=== PATIENT | male | born 1990 | race Hispanic/Latino ===

== ENCOUNTER 2018-05-30 02:05 | Emergency (ER) | payer OTHER | END 2018-05-30 02:42 | disposition home or self-care (01) | LOC: EDH 02:05 | DX: F41.9 Anxiety disorder, unspecified (principal) ==

== ENCOUNTER 2023-09-03 20:44 | Emergency (ER) | payer OTHER ==
[~2023-09-03] VITALS: Ht 165.1 cm; Wt 212.5 kg
[2023-09-03 21:15] LABS: SARS-CoV-2, RNA, NAAT NEGATIVE SARS CoV-2 (NEGATIVE)
[2023-09-03 21:16] LABS: INFLUENZA TYPE A Negative For Type A (NEGATIVE); INFLUENZA TYPE B Negative For Type B (NEGATIVE)
[2023-09-03 21:22] LABS: BASOPHILS # (AUTO) 0.01 K/uL (0.00-0.20); BASOPHILS % (AUTO) 0.4 % (0.0-5.0); HEMATOCRIT 42.6 % (42-54); IMMATURE GRANULOCYTE ABSOLUTE 0.01 K/uL (0-1); LYMPHOCYTES % (AUTO) 34.6 % (21.0-51.0); MEAN CORPUSCULAR HEMOGLOBIN 28.7 pg (27.0-33.0); MEAN CORPUSCULAR HGB CONC 32.9 g/dL (32.0-36.0); MEAN CORPUSCULAR VOLUME 87.3 fL (79-99); MONOCYTES # (AUTO) 0.2 K/uL (0.1-1.0); MONOCYTES % (AUTO) 6.8 % (3.0-13.0); NEUTROPHILS # (AUTO) 1.6 K/uL (1.8-7.7); NEUTROPHILS % (AUTO) 57.8 % (40.0-77.0); PLATELET COUNT (AUTO) 127 K/uL (130-400); RED BLOOD CELL COUNT(AUTO) 4.88 MIL/uL (4.50-6.20); RED CELL DISTRIBUTION WIDTH 13.2 % (11.0-15.5); WHITE BLOOD COUNT (AUTO) 2.8 K/uL (4.8-10.8)
[2023-09-03 21:41] LABS: CREATININE 0.9 mg/dL (0.5-1.5); POTASSIUM 3.7 mmol/L (3.5-5.1)
[2023-09-03 21:42] LABS: BAND NEUTROPHILS % (MANUAL) 16 % (0-2); LYMPHOCYTES % (MANUAL) 27 % (22-44); MAN.DIFF COMMENT-IMPRESSION MANUAL DIFFERENTIAL; MONOCYTES % (MANUAL) 8 % (2-9); REACTIVE LYMPHOCYTES 6 % (0-0); SEGMENTED NEUTROPHILS % 43 % (40-70); TOTAL CELLS COUNTED 100
[2023-09-03 21:45] LABS: PLATELET MORPHOLOGY COMMENT LARGE PLTS PRESENT
[2023-09-03 21:46] LABS: BILIRUBIN,TOTAL 0.6 mg/dL (0.2-1.0); TOTAL PROTEIN, SERUM 7.6 g/dL (6.0-8.3)
[2023-09-03] MEDS ORDERED: CEFTRIAXONE 1G VIAL IVPB ONE (22:30)
[2023-09-03] MEDS ORDERED: 0.9%NACL 1000ML 2,500 ML IV ONE (22:30)
[2023-09-03 23:01] VITALS: BP 115/75; PULSE 95; RESP 16; O2SAT 94
[2023-09-03] MEDS ORDERED: AMOX500C2 PO (23:21)
== END 2023-09-03 23:49 | disposition home or self-care (01) ==
LOC: EDH 20:44
DX: J02.0 Streptococcal pharyngitis (principal); J40 Bronchitis, not specified as acute or chronic; E11.9 Type 2 diabetes mellitus without complications; E86.0 Dehydration; Z20.822 Contact with and (suspected) exposure to COVID-19
CPT/HCPCS: 99285; 96365; 71045; 87635; 82550; 84484; 80053; 83880; 85025; 85378; 87040 ×2; 87880; 87804 ×2; 83605; 36415; 93005; C9803; J7030; J0696